=== PATIENT | male | born 1940 | race Caucasian/White ===

== ENCOUNTER 2021-06-25 14:13 | Outpatient (CLI) | payer MEDICARE ==
[2021-06-25 14:20] LABS: Bilirubin Negative (Negative); Blood, Urine Moderate (Negative); Glucose, Urine (Dipstick) Negative (Negative); Ketone, Urine Negative (Negative); Leukocyte Large (Negative); Nitrite Negative (Negative); Protein, Urine (Dipstick) 30 mg/dL (Neg-Trace); Specific Gravity, Urine 1.015 (1.005-1.030); Urobilinogen 0.2 mg/dL (Less than 2); pH, Urine 6.5 (5.0-9.0)
[2021-06-25 14:25] LABS: Clarity Hazy (Clear)
[2021-06-25 14:26] LABS: Bacteria/HPF Rare-Few HPF (None Seen); Squamous Epithelial 0-3 HPF (0-3)
[2021-06-25 18:02] LABS: #Eosinphils 0.2 thou/uL (0.0-0.7); #Lymphocytes 0.8 thou/uL (1.20-3.40); #Monocytes 0.5 thou/uL (0.11-0.59); #Neutrophils 4.3 thou/uL (1.40-6.50); %Basophils 0.8 % (0.0-1.0); %Eosinophils 2.7 % (0.0-10.0); %Lymphocytes 13.2 % (21.0-51.0); %Monocytes 8.7 % (0.0-10.0); %Neutrophils 74.5 % (42.0-75.0); Anisocytosis SLIGHT = 6-15 cells (100X) (0-5/hpf); Hemoglobin 10.3 g/dL (14.0-18.0); Hypochromia SLIGHT = 6-15 cells (100X) (0-5/hpf); MDiff Complete? YES; Mean Corpuscular HGB CONC 28.4 g/dL (32.0-36.0); Mean Corpuscular Hemoglobin 26.4 pg (27.0-31.0); Mean Corpuscular Volume 92.9 fL (78.0-98.0); Mean Platelet Volume 7.8 fL (7.4-10.4); Ovalocytes SLIGHT = 2-5 cells (100X) (0-1/hpf); Platelet Count 320 thou/uL (130-400); Poikilocytosis SLIGHT = 6-15 cells (100X) (0-5/hpf); RBC Distribution Width 21.2 % (11.5-14.5); Rouleaux Formation SLIGHT = 1-5 cells (100X) (None Seen); Tear Drops SLIGHT = 2-5 cells (100X) (0-1/hpf); White Blood Cell (WBC) Count 5.8 thou/uL (4.8-10.8)
== END 2021-06-25 14:14 | disposition home or self-care (01) ==
LOC: BURMANOR 14:13
PROVIDERS: ATTEND Nurse Practitioner Family
DX: N39.0 Urinary tract infection, site not specified (principal); N18.4 Chronic kidney disease, stage 4 (severe)
CPT/HCPCS: 81003; 81015; 85025; 87040